=== PATIENT | male | born 2000 | race Caucasian/White ===

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

== ENCOUNTER 2019-10-18 19:26 | Inpatient (IN) | payer MEDICAID ==
[~2019-10-18] VITALS: Ht 180.3 cm; Wt 82.0 kg
--- NOTE | 2019-10-18 19:55 | NUR ---
XRAY IN ROOM AT THIS TIME.
[2019-10-18] MEDS ORDERED: ONDANSETRON ODT 4 MG ONE (20:15)
[2019-10-18] MEDS ORDERED: HYDROmorphone 1 MG/ML, 1ML INJ ONE (20:16)
--- NOTE | 2019-10-18 20:21 | NUR ---
EMT AT BEDSIDE FOR SPLINT AT THIS TIME.
[2019-10-18] MEDS ORDERED: ONDANSETRON ODT 4 MG PO ONE (20:30)
[2019-10-18] MEDS ORDERED: HYDROmorphone 1 MG/ML, 1ML INJ IM ONE (20:30)
[2019-10-18] MEDS ORDERED: SODIUM CHLORIDE FLUSH 10ML SYR IVF ONE (20:30)
--- NOTE | 2019-10-18 20:48 | NUR ---
PT TO CT AT THIS TIME.
[2019-10-18 20:57] LABS: MEAN CORPUSCULAR HEMOGLOBIN 28.9 pg (27.5-34.5); MEAN CORPUSCULAR HGB CONC 32.4 g/dL (33.2-36.2); MEAN CORPUSCULAR VOLUME 89.3 fL (81-97); MEAN PLATELET VOLUME 8.5 fL (7.4-10.4); PLATELET COUNT 269 x10^3/uL (130-400); RED BLOOD COUNT 5.96 x10^6/uL (4.38-5.82); RED CELL DISTRIBUTION WIDTH 13.1 % (9.4-14.8)
[2019-10-18] MEDS ORDERED: GUAIFENESIN/DM 200-20MG, 10ML UDC PO PRN (21:00)
[2019-10-18] MEDS ORDERED: ZOLPIDEM 5MG TABLET PO PRN (21:00)
[2019-10-18] MEDS ORDERED: ONDANSETRON 2MG/ML, 2ML IVPush PRN (21:00)
[2019-10-18] MEDS ORDERED: DOCUSATE 100 MG CAPSULE PO PRN (21:00)
[2019-10-18] MEDS ORDERED: hydrALAzine 20 MG/ML, 1ML IVPush PRN (21:00)
--- NOTE | 2019-10-18 21:01 | NUR ---
PT BACK TO CT.
--- NOTE | 2019-10-18 21:01 | NUR ---
EMT AT BEDSIDE FOR SPLINT AT THIS TIME.
[2019-10-18 21:06] LABS: ALBUMIN 4.5 g/dL (3.4-5.0); ANION GAP 6 mmol/L (5-15); CALCIUM 8.7 mg/dL (8.5-10.1); CHLORIDE 108 mmol/L (98-107); CREATININE 1.14 mg/dL (0.7-1.3)
--- NOTE | 2019-10-18 21:11 | NUR ---
PT'S GF'S NUMBER [facility] [phone]
[2019-10-18] MEDS ORDERED: ALBU0.63 NEB (21:12)
--- NOTE | 2019-10-18 21:29 | NUR ---
PT WHEELED TO BR PER REQUEST AT THIS TIME.
[2019-10-18 21:35] LABS: MD YES
[2019-10-18 21:39] LABS: EOS#(MANUAL) 1.04 x10^3/uL (0.0-0.4); EOS% (MANUAL) 6 % (1-7); LYMPH#(MANUAL) 3.48 x10^3/uL (1-3.4); LYMPHS% (MANUAL) 20 % (22-44); SEG#(MANUAL) 12.88 x10^3/uL (1.8-6.8); SEGS% (MANUAL) 74 % (42-75)
--- NOTE | 2019-10-18 21:39 | NUR ---
REPORT GIVEN TO JOSSELYN ZAPATA. ALL QUESTIONS ANSWERED.
[2019-10-18 21:40] LABS: <PLATELET ESTIMATE> ADEQUATE; <RBC MORPHOLOGY> NORMAL
[2019-10-18 21:41] LABS: LARGE PLATELETS 1+
--- NOTE | 2019-10-18 21:57 | NUR ---
PT AGITATED AND ANXIOUS AT THIS TIME. PT STATED "I NEED MY GF OR DAD WITH ME TONIGHT. WHY CAN'T SHE STAY HERE WITH ME?" THIS RN EDUCATED REGARDING VISITER POLICY. PT VERBALLY UNDERSTANDING AT THIS TIME. PT'S GF WILL GO HOME TO GRAB SOME PANTS, PHONE AND PSYCHOPAEDIC NURSE FOR HIM AND WILL DROP THEM OFF AT ED ENTRANCE FOR PT. THIS EN NOTIFIED TRIAGE SCREENER.
[2019-10-18] MEDS: FAMOTIDINE 20 MG TABLET PO SCH (22:14)
[2019-10-18] MEDS: LACTATED RINGERS 1,000 ML IV SCH (22:14)
[2019-10-18 22:28] VITALS: BP 123/58
[2019-10-18] MEDS: ALBUTEROL INHALER MC SCH (22:30)
[2019-10-18] MEDS: NICOTINE 14MG/24 HR PATCH.TD24 TD SCH (23:21)
[2019-10-18] MEDS: CHLORDIAZEPOXIDE 25 MG CAPSULE PO PRN (23:21)
[2019-10-18] MEDS: OXYcodone IR 5MG TABLET PO PRN (23:22)
[2019-10-18] MEDS ORDERED: LORazepam 2 MG/ML, 1ML IVPush PRN (23:30)
[2019-10-19 02:48] VITALS: BP 127/87
[2019-10-19] MEDS: morphine SULFATE 10 MG/ML, 1ML IVPush PRN ×3 (04:17→17:46)
[2019-10-19] MEDS: ALBUTEROL INHALER MC SCH ×2 (04:48→17:30)
[2019-10-19 06:11] LABS: BASOPHILS # (AUTO) 0.04 x10^3/uL (0-0.1); BASOPHILS % (AUTO) 0 % (0-1); EOSINOPHILS # (AUTO) 0.14 x10^3/uL (0-0.4); EOSINOPHILS % (AUTO) 1 % (1-7); LYMPHOCYTES # (AUTO) 1.89 x10^3/uL (1-3.4); LYMPHOCYTES % (AUTO) 12 % (22-44); MD NO; MEAN CORPUSCULAR HEMOGLOBIN 29.7 pg (27.5-34.5); MEAN CORPUSCULAR HGB CONC 33.7 g/dL (33.2-36.2); MEAN CORPUSCULAR VOLUME 88.1 fL (81-97); MEAN PLATELET VOLUME 8.8 fL (7.4-10.4); MONOCYTES # (AUTO) 1.16 x10^3/uL (0.2-0.8); MONOCYTES % (AUTO) 7 % (2-9); NEUTROPHILS # (AUTO) 12.99 x10^3/uL (1.8-6.8); NEUTROPHILS % (AUTO) 80 % (42-75); PLATELET COUNT 243 x10^3/uL (130-400); RED BLOOD COUNT 5.25 x10^6/uL (4.38-5.82); RED CELL DISTRIBUTION WIDTH 13.4 % (9.4-14.8)
[2019-10-19 06:20] LABS: INTERNATIONAL NORMALIZED RATIO 1.01 (0.93-1.1); PROTHROMBIN TIME 10.7 Seconds (9.6-11.5)
[2019-10-19 06:26] LABS: ANION GAP 6 mmol/L (5-15); CALCIUM 8.8 mg/dL (8.5-10.1); CHLORIDE 107 mmol/L (98-107)
[2019-10-19 06:29] LABS: CREATININE 1.12 mg/dL (0.7-1.3)
[2019-10-19 06:44] VITALS: BP 145/78
[2019-10-19] MEDS: LACTATED RINGERS 1,000 ML IV SCH (07:33)
[2019-10-19 08:45] VITALS: BP 127/79
[2019-10-19] MEDS: FAMOTIDINE 20 MG TABLET PO SCH ×2 (09:24→21:02)
[2019-10-19] MEDS ORDERED: MIDAZOLAM 1 MG/ML, 2ML ONE ×2 (09:44→10:18)
[2019-10-19] MEDS ORDERED: DEXAMETHASONE 4 MG/ML, 1ML ONE (09:45)
[2019-10-19] MEDS ORDERED: FENTANYL PF 100 MCG/2ML ONE ×4 (09:45→13:30)
[2019-10-19] MEDS ORDERED: ONDANSETRON 2MG/ML, 2ML ONE (09:45)
[2019-10-19] MEDS ORDERED: CEFAZOLIN 1,000 MG ONE (09:45)
[2019-10-19] MEDS ORDERED: PROPOFOL 10 MG/ML, 20ML ONE (09:45)
[2019-10-19] MEDS ORDERED: BUPIVACAINE/PF 0.5% ONE (10:16)
[2019-10-19] MEDS ORDERED: LIDOCAINE 1%, 20ML ONE (10:16)
[2019-10-19] MEDS ORDERED: MEPERIDINE/PF 25MG/0.5ML IVPush PRN (10:30)
[2019-10-19] MEDS ORDERED: HYDROmorphone 1 MG/ML, 1ML INJ IVPush PRN (10:30)
[2019-10-19] MEDS ORDERED: PROMETHAZINE 25 MG/ML, 1ML IVPush PRN (10:30)
[2019-10-19] MEDS ORDERED: LORazepam 2 MG/ML, 1ML IVPush PRN (10:30)
[2019-10-19] MEDS ORDERED: FENTANYL PF 100 MCG/2ML IV PRN (10:30)
[2019-10-19] MEDS ORDERED: HYDROcodone/APAP 7.5-325MG/15ML UDC PO PRN (10:30)
[2019-10-19] MEDS ORDERED: OXYcodone 5 MG/5 ML ORAL.SOL UDC PO PRN (10:30)
[2019-10-19] MEDS ORDERED: MEPERIDINE/PF 25MG/ML,1ML ONE (13:25)
[2019-10-19] MEDS ORDERED: LORazepam 2 MG/ML, 1ML ONE (13:30)
[2019-10-19] MEDS ORDERED: OXYcodone 5 MG/5 ML ORAL.SOL UDC ONE (13:30)
[2019-10-19] MEDS ORDERED: ALBUTEROL HFA 90 MCG/SPRAY ONE (13:56)
[2019-10-19] MEDS ORDERED: DIPHENHYDRAMINE 25 MG CAPSULE PO PRN (14:00)
[2019-10-19] MEDS ORDERED: HYDROcodone/APAP 5/325 TABLET PO PRN (14:00)
[2019-10-19 16:23] VITALS: BP 145/84
[2019-10-19] MEDS: CHLORDIAZEPOXIDE 25 MG CAPSULE PO PRN (17:46)
[2019-10-19] MEDS: CEFAZOLIN PMX 2GM/50ML 50 ML IVPB SCH (17:47)
[2019-10-19] MEDS ORDERED: ALBUTEROL HFA 90 MCG/SPRAY INH PRN (19:00)
[2019-10-19 20:17] VITALS: BP 132/89
[2019-10-19] MEDS: OXYcodone IR 5MG TABLET PO PRN (21:01)
[2019-10-19] MEDS: ACETAMINOPHEN 325 MG TABLET PO PRN (21:02)
[2019-10-19] MEDS: CYCLOBENZAPRINE 10 MG TABLET PO PRN (21:02)
[2019-10-19] MEDS: NICOTINE 14MG/24 HR PATCH.TD24 TD SCH (23:48)
[2019-10-20] MEDS: ACETAMINOPHEN 325 MG TABLET PO PRN ×4 (01:36→13:36)
[2019-10-20] MEDS: OXYcodone IR 5MG TABLET PO PRN ×4 (01:37→13:36)
[2019-10-20] MEDS: CEFAZOLIN PMX 2GM/50ML 50 ML IVPB SCH ×2 (01:37→10:27)
[2019-10-20 01:42] VITALS: BP 126/79
[2019-10-20] MEDS: LACTATED RINGERS 1,000 ML IV SCH ×2 (04:04→13:09)
[2019-10-20 04:08] VITALS: BP 150/79
[2019-10-20] MEDS: CYCLOBENZAPRINE 10 MG TABLET PO PRN (05:34)
[2019-10-20 07:45] VITALS: BP 124/71
[2019-10-20] MEDS: FAMOTIDINE 20 MG TABLET PO SCH (07:58)
[2019-10-20] MEDS ORDERED: ENOXAPARIN 40 MG/0.4 ML SQ SCH (08:00)
[2019-10-20] MEDS ORDERED: HYDR-3237 PO (11:18)
[2019-10-20] MEDS ORDERED: ASPI-515 PO (11:20)
[2019-10-20 12:34] VITALS: BP 126/69
== END 2019-10-20 14:00 | disposition home or self-care (01) | DRG 493 ==
LOC: ED 21:09 → EDIP 21:11 → 4NE 22:07 → DCLOUNGE 10-20 13:44
PROVIDERS: ADMIT Internal Medicine; ATTEND Hospitalist
PROC: 0QSK04Z Reposition Left Fibula with Internal Fixation Device, Open Approach (ICD-10-PCS; 2019-10-19)
PROC: 0QSH04Z Reposition Left Tibia with Internal Fixation Device, Open Approach (ICD-10-PCS; principal; 2019-10-19 10:30)
DX: S82.242A Displaced spiral fracture of shaft of left tibia, initial encounter for closed fracture (principal); Q60.0 Renal agenesis, unilateral; F17.210 Nicotine dependence, cigarettes, uncomplicated; F41.0 Panic disorder [episodic paroxysmal anxiety]; J45.20 Mild intermittent asthma, uncomplicated; S82.62XA Displaced fracture of lateral malleolus of left fibula, initial encounter for closed fracture; W18.39XA Other fall on same level, initial encounter; Y93.89 Activity, other specified; Y92.89 Other specified places as the place of occurrence of the external cause; Y99.8 Other external cause status; Z20.828 Contact with and (suspected) exposure to other viral communicable diseases
CPT/HCPCS: 36415; 73590; 73610; 76000; J3490; S0020; 80048; 82040; 85025; 85610; 87635; 96372; 99285; G0378; J0690; J1100; J1170; J1650; J2175; J2250; J2405; J2704; J3010; Q0162; J2270; J7120

== ENCOUNTER 2019-12-04 09:41 | Emergency (ER) | payer MEDICAID ==
[~2019-12-04] VITALS: Ht 180.3 cm; Wt 68.5 kg
[~2019-12-04 09:41] MED LIST: ALBU0.63 NEB; ASPI-515 PO; HYDR-3237 PO
[2019-12-04 09:49] VITALS: BP 126/85
--- NOTE | 2019-12-04 10:00 | NUR ---
OPTICAL ENGINEERING MANAGER: PT TO ROOM FROM [facility] WALKING
--- NOTE | 2019-12-04 10:06 | NUR ---
PATIENT WALKED BACK FROM TRIAGE WITH CRUTCHES WITH CHIEF COMPLAINT OF SOB. PATIENT DOES NOT HAVE HIS RESCUE INHALER AND WOULD LIKE A REFILL. PATIENT IS SITTING UP IN CHAIR, CONNECTED TO PULSE OX, REFUSING TO GET INTO HOSPITAL GOWN.
[2019-12-04] MEDS ORDERED: ALBUTEROL/IPRATROPIUM 2.5MG/0.5MG, 3 ML ONE (10:15)
--- NOTE | 2019-12-04 10:27 | NUR ---
PATIENT SITTING IN [place], MEDICATED PER eMAR, NEBULIZER TREATMENT STARTED.
[2019-12-04] MEDS ORDERED: ALBUTEROL/IPRATROPIUM 2.5MG/0.5MG, 3 ML NPPB ONE (10:30)
--- NOTE | 2019-12-04 10:58 | NUR ---
PATIENT FINISHED WITH NEBULIZER TREATMENT, REPORTS RELIEF OF SOB.
--- NOTE | 2019-12-04 11:18 | NUR ---
Patient given discharge instructions and they have confirmed that they understand the instructions, patient walked to discharge desk with his crutches.
== END 2019-12-04 11:21 | disposition home or self-care (01) ==
LOC: ED 10:43
DX: J45.41 Moderate persistent asthma with (acute) exacerbation (principal)
CPT/HCPCS: 94640; 99283; J7512

== ENCOUNTER 2020-02-05 15:14 | Emergency (ER) | payer MEDICAID ==
[~2020-02-05] VITALS: Ht 180.3 cm; Wt 71.0 kg
[2020-02-05 15:26] VITALS: BP 126/86
[2020-02-05] MEDS ORDERED: ALBUTEROL SULFATE 2.5 MG/3 ML NPPB SCH (15:30)
--- NOTE | 2020-02-05 15:31 | NUR ---
CLAIMS ADJUSTER CROP: PT REFUSED EKG
--- NOTE | 2020-02-05 16:44 | NUR ---
MANAGER OF PMO: PT TO ROOM FROM YADIRA GRANADOS
[2020-02-05] MEDS ORDERED: ALBUTEROL SULFATE 2.5 MG/3 ML ONE (16:47)
--- NOTE | 2020-02-05 16:51 | NUR ---
RADIOLOGY, pt refused Xray.
--- NOTE | 2020-02-05 16:54 | NUR ---
THIS IS A 19 YO MALE COMING IN FOR "MY ROOMMATES WERE SICK LAST WEEK BUT IT WAS ONKLY FOR 2 DAYS, AND I GOT SICK, AND NOW I AM JUST HAVING A LITTEL BIT OF A HARD TIME BREATHING, I RAN OUT OF MY RESCUE INHALER". PATIENT REFUSED TO CHANGE TO HOSPITAL GOWN AND 5 LEAD CARDIAC MONITORING. AGREEABLE TO SPO2 MONITOR. MINOR EXPIRATORY WHEEZES AUSCULTATED THROUGHOUT. RESPIRATIONS EVEN AND UNLABORED. BREATHING TREATMENT STARTED. TOELRATING WELL. CALL LIGHT IN REACH
--- NOTE | 2020-02-05 16:59 | NUR ---
BREATHING TREATMENT COMPLETED, PATIENT STATES "I FEEL GREAT". EXPIRATORY WHEEZES STILL NOTED THROUGHOUT. PATIENT STATES "I ALWAYS SOUND LIKE THAT".
--- NOTE | 2020-02-05 17:26 | NUR ---
Patient given discharge instructions and they have confirmed that they understand the instructions. Patient ambulatory with steady gait.
== END 2020-02-05 17:28 | disposition home or self-care (01) ==
LOC: ED 17:25
DX: J45.41 Moderate persistent asthma with (acute) exacerbation (principal); Z76.0 Encounter for issue of repeat prescription; F17.200 Nicotine dependence, unspecified, uncomplicated; Z91.19 Patient's noncompliance with other medical treatment and regimen
CPT/HCPCS: 94640; 99283; J7613

== ENCOUNTER 2020-03-25 12:58 | Emergency (ER) | payer MEDICAID ==
[~2020-03-25] VITALS: Ht 180.3 cm; Wt 72.3 kg
--- NOTE | 2020-03-25 14:09 | NUR ---
PT REFUSING TO PUT ON GOWN.
[2020-03-25] MEDS ORDERED: DEXAMETHASONE 4 MG TABLET ONE (14:37)
--- NOTE | 2020-03-25 14:44 | NUR ---
PT REFUSING ALBUTEROL TREATMENT. PT STATES "I REALLY JUST WANT MY INHALER PRESCRIPTION REFILLED AND TO GO". LALO DING AWARE.
[2020-03-25 14:50] VITALS: BP 134/80
[2020-03-25] MEDS ORDERED: DEXAMETHASONE 4 MG TABLET PO ONE (15:00)
[2020-03-25] MEDS ORDERED: ALBUTEROL SULFATE 2.5 MG/3 ML NPPB ONE (15:00)
== END 2020-03-25 15:07 | disposition home or self-care (01) ==
LOC: ED 15:00
DX: J45.41 Moderate persistent asthma with (acute) exacerbation (principal)
CPT/HCPCS: 99283

== ENCOUNTER 2020-07-21 12:44 | Emergency (ER) | payer MEDICAID ==
[~2020-07-21] VITALS: Ht 180.3 cm; Wt 76.1 kg
[~2020-07-21 12:44] MED LIST changes: -ASPI-515 PO; +ASPI-963 PO
[2020-07-21 13:13] VITALS: BP 119/59
--- NOTE | 2020-07-21 13:17 | NUR ---
SUPPLY CHAIN INTERN: PT REFUSED EKG.
--- NOTE | 2020-07-21 13:18 | NUR ---
ELECTROMATIC TYPIST: PT STATES "THE ONLY REASON I'M HERE IS BECAUSE MY BOSS MADE ME COME"
--- NOTE | 2020-07-21 13:20 | NUR ---
PATIENT SENT OVER FROM EMPLOYER AFTER ASTHMA ATTACK AT WORK. PATIENT NEEDS RESCUE INHALER REFILL. NADN, CALL LIGHT WITHIN REACH.
[2020-07-21] MEDS ORDERED: ALBUTEROL/IPRATROPIUM 2.5MG/0.5MG, 3 ML ONE (13:41)
--- NOTE | 2020-07-21 13:48 | NUR ---
PATIENT MEDICATED PER eMAR, BREATHING TREATMENT STARTED.
[2020-07-21] MEDS ORDERED: ALBUTEROL/IPRATROPIUM 2.5MG/0.5MG, 3 ML NEB ONE (14:00)
== END 2020-07-21 13:58 | disposition home or self-care (01) ==
LOC: ED 13:38
DX: J45.31 Mild persistent asthma with (acute) exacerbation (principal); R06.00 Dyspnea, unspecified; R05 Cough; Z79.899 Other long term (current) drug therapy
CPT/HCPCS: 94640; 99283; J7512

== ENCOUNTER 2020-08-28 16:54 | Emergency (ER) | payer MEDICAID ==
[~2020-08-28] VITALS: Ht 180.3 cm; Wt 76.7 kg
[2020-08-28 16:56] VITALS: BP 132/68
[2020-08-28] MEDS ORDERED: ALBUTEROL/IPRATROPIUM 2.5MG/0.5MG, 3 ML ONE (17:23)
--- NOTE | 2020-08-28 17:29 | NUR ---
TASK RN: PT TOLERATED BREATHING TX WELL. NADN/VSS
[2020-08-28] MEDS ORDERED: ALBUTEROL/IPRATROPIUM 2.5MG/0.5MG, 3 ML NPPB ONE (17:30)
--- NOTE | 2020-08-28 17:45 | NUR ---
VSS/PT APPEARS COMFORTABLE. PT FOR RECHECK.
== END 2020-08-28 18:30 | disposition home or self-care (01) ==
LOC: ED 17:24
DX: J45.31 Mild persistent asthma with (acute) exacerbation (principal); Z87.891 Personal history of nicotine dependence
CPT/HCPCS: 94640; 99283; J7512

== ENCOUNTER 2020-09-15 21:51 | Emergency (ER) | payer MEDICAID ==
[~2020-09-15] VITALS: Ht 180.3 cm; Wt 78.5 kg
[2020-09-15 22:20] VITALS: BP 123/67
--- NOTE | 2020-09-15 23:20 | NUR ---
NIL X 1
--- NOTE | 2020-09-16 | NUR ---
NIL X 2
--- NOTE | 2020-09-16 01:49 | NUR ---
PRODUCTION PAINTER: CALLED FOR PATIENT. PATIENT NOT IN LOBBY FOR 3RD ATTEMPT.
== END 2020-09-16 23:13 | disposition left against medical advice (07) ==
LOC: ED 09-16 02:00
DX: J45.909 Unspecified asthma, uncomplicated (principal); Z53.21 Procedure and treatment not carried out due to patient leaving prior to being seen by health care provider

== ENCOUNTER 2020-09-25 20:38 | Emergency (ER) | payer MEDICAID ==
[~2020-09-25] VITALS: Ht 180.3 cm; Wt 75.7 kg
[2020-09-25 20:43] VITALS: BP 145/59
== END 2020-09-25 20:57 | disposition home or self-care (01) ==
LOC: ED 20:48
DX: J45.31 Mild persistent asthma with (acute) exacerbation (principal)
CPT/HCPCS: 99283

== ENCOUNTER 2020-10-19 10:20 | Emergency (ER) | payer MEDICAID ==
[~2020-10-19] VITALS: Ht 180.3 cm; Wt 77.3 kg
[2020-10-19 10:35] VITALS: BP 139/84
[2020-10-19] MEDS ORDERED: ALBUTEROL/IPRATROPIUM 2.5MG/0.5MG, 3 ML NPPB STA (10:38)
--- NOTE | 2020-10-19 11:21 | NUR ---
TRAINING PROGRAM MANAGER: PT TO ROOM FROM YADIRA GRANADOS
[2020-10-19] MEDS ORDERED: ALBUTEROL/IPRATROPIUM 2.5MG/0.5MG, 3 ML ONE (11:25)
--- NOTE | 2020-10-19 11:35 | NUR ---
TASK RN: PT REFUSING TO WEAR GOWN, STATES THAT HE WANTS TO ASK THE ERP IF HE NEEDS TO WEAR ONE. PT EDUCATED THAT THIS MAY DELAY CARE. PT VERBALIZED UNDERSTANDING. PT STATES THAT HE COMES IN A FEW TIMES A MONTH AND NEVER HAS TO WEAR A GOWN. EDUCATED ON ED PROCESS. PT MEDICATED PER EMAR. RESTING ON CHAIR AT BEDSIDE PER PT REQUEST. BREATHING TX IN PROGRESS, AWAITING ED EVAL.
--- NOTE | 2020-10-19 11:50 | NUR ---
TASK RN: DR.VAN CAMEJO AT BEDSIDE
== END 2020-10-19 12:05 | disposition home or self-care (01) ==
LOC: ED 11:38
DX: J45.31 Mild persistent asthma with (acute) exacerbation (principal); Z76.0 Encounter for issue of repeat prescription
CPT/HCPCS: 94640; 99283; J7512

== ENCOUNTER 2020-11-23 20:32 | Emergency (ER) | payer MEDICAID ==
[~2020-11-23] VITALS: Ht 180.3 cm; Wt 81.9 kg
[2020-11-23 20:36] VITALS: BP 143/72
== END 2020-11-23 21:10 | disposition home or self-care (01) ==
LOC: ED 20:52
DX: J45.909 Unspecified asthma, uncomplicated (principal); Z76.0 Encounter for issue of repeat prescription; F17.200 Nicotine dependence, unspecified, uncomplicated
CPT/HCPCS: 99281